=== PATIENT | female | born 1985 | race Two or more races ===

== ENCOUNTER 2025-06-22 15:14 | Inpatient (IN) | payer OTHER ==
[~2025-06-22] VITALS: Ht 165.1 cm; Wt 66.5 kg
--- NOTE | 2025-06-22 15:20 | ED.PDOC ---
HPI Comments 40 y.o F with PMHx of seizures, presents to the ED via EMS for chief complaint of left-sided chest pain localized right under her left breast that started three weeks ago. patient reports that pain is intermittent, presents on deep inspiration and has no alleviating factors. Patient took 81 mg of aspirin prior to EMS arrival however states that pain is still present. She denies any nausea, vomiting, abdominal pain, shortness a breath, fever, chills, recent illness. Time Seen by MD: 15:15 Reviewed Notes: Nurses Notes, Medications, Allergies Allergies: Coded Allergies: Morphine (Verified Allergy, Unknown, 06/22/25) Information Source: Patient, Emergency Med Personnel Mode of Arrival: EMS Severity: Moderate Timing: Weeks (3) Duration: Intermittent Prehospital treatment: 12 Lead EKG, [facility] Instructor Location: Chest (L) Quality: Sharp Onset: At Rest Cardiac Risk Factors: None PE Risk Factors: None History of: None Associated Signs and Symptoms: None Past Medical History PAST MEDICAL HISTORY: Seizures Surgical History: Denies all surgeries JUNIOR ACCOUNTANT History: No Pertinent JUNIOR ACCOUNTANT History Family History Family History: Reviewed,noncontributory to illness Social History Smoker: Non-Smoker Alcohol: Denies ETOH Use Drugs: Denies Drug Use Lives In: Home Constitutional: denies: chills, diaphoresis, fatigue, fever, malaise, sweats, weakness, others EENTM: denies: blurred vision, double vision, ear bleeding, ear discharge, ear drainage, ear pain, ear ringing, eye pain, eye redness, hearing loss, mouth pain, mouth swelling, nasal discharge, nose bleeding, nose congestion, nose pain, photophobia, tearing, throat pain, throat swelling, voice changes, others Respiratory: denies: cough, hemoptysis, orthopnea, SOB at rest, shortness of breath, SOB with excertion, stridor, wheezing, others Cardiovascular: reports: chest pain; denies: dizzy spells, diaphoresis, Dyspnea on exertion, edema, irregular heart beat, left arm pain, lightheadedness, palpitations, PND, syncope, others Gastrointestinal: denies: abdomen distended, abdominal pain, blood streaked bowels, constipated, diarrhea, dysphagia, difficulty swallowing, hematemesis, melena, nausea, poor appetite, poor fluid intake, rectal bleeding, rectal pain, vomiting, others Genitourinary: denies: abnormal vagina bleeding, burning, dyspareunia, dysuria, flank pain, frequency, hematuria, incontinence, pain, , vagina discharge, urgency, others Neurological: denies: dizziness, fainting, headache, left sided numbness, left sided weakness, numbness, paresthesia, pre-existing deficit, right sided numbness, right sided weakness, seizure, speech problems, tingling, tremors, weakness, others Musculoskeletal: denies: back pain, gout, joint pain, joint swelling, muscle pain, muscle stiffness, neck pain, others Integumetry: denies: bruises, change in color, change in hair/nails, dryness, laceration, lesions, lumps, rash, wounds, others Allergic/Immunocompromised: denies: Difficulty Healing, Frequent Infections, Hives, Itching, others Hematologic/Lymphatic: denies: anemia, blood clots, easy bleeding, easy bruising, swollen glands, others Endocrine: denies: excessive hunger, excessive sweating, excessive thirst, excessive urination, flushing, intolerance to cold, intolerance to heat, unexplained weight gain, unexplained weight loss, others Psychiatric: denies: anxiety, bipolar disorder, depression, hopeless, panic disorder, schizophrenia, sleepless, suicidal, others All Other Systems: Reviewed and Negative Physical Exam General Appearance: Moderate Distress HEENT: Normal ENT Inspection, Pharynx Normal, TMs Normal Neck: Full Range of Motion, Non-Tender, Normal, Normal Inspection Respiratory: Chest Non-Tender, Lungs Clear, No Accessory Muscle Use, No Respiratory Distress, Normal Breath Sounds Cardiovascular: No Edema, No JVD, No Murmur, No Gallop, Normal Peripheral Pulses, Regular Rate/Rhythm Breast Exam: Deferred Gastrointestinal: No Organomegaly, Non Tender, No Pulsatile Mass, Normal Bowel Sounds, Soft Genitalia: Deferred Pelvic: Deferred Rectal: Deferred Extremities: No calf tenderness, Normal capillary refill, Normal inspection, Normal range of motion, Non-tender, No pedal edema Musculoskeletal : Apperance: Normal Neurologic: Alert, office executive II-XII nml as Tested, No Motor Deficits, Normal Affect, Normal Mood, No Sensory Deficits Cerebellar Function: Normal Reflexes: Normal Skin: Dry, Normal Color, Warm Peripheral Pulses: 3+ Radial (R), 3+ Radial (L) Lymphatic: No Adenopathy Was a procedure done? Was a procedure done?: No CP Differential Dx Differential Diagnosis: A-fib, A-Flutter, Angina, Anxiety / Panic Attack, Atrial Dysrhythmia, Electrolyte Disorder, N/A Differential Diagnosis: Angina, Chest Wall Pain, Cholelithiasis, Costochondritis, Esophageal reflux/spasm, Myocardial Infarction, Pericarditis X-Ray, Labs, Meds, VS Vital Signs Date Time Temp Pulse Resp B/P (MAP) Pulse Ox O2 Delivery O2 Flow Rate FiO2 06/22/25 15:45 67 17 99 Room Air* 0 21 06/22/25 15:44 98.5 67 18 116/51 (72) 99 98.5 06/22/25 15:16 98.4 65 18 125/85 99 98.4 Lab Test 06/22/25 15:21 Range/Units White Blood Count 6.5 4.4-10.8 10^3/uL Red Blood Count 4.15 4.0-5.20 10^6/uL Hemoglobin 13.0 12.2-16.2 g/dL Hematocrit 37.7 36.0-46.0 % Mean Corpuscular Volume 91.0 80.0-100.0 fL Mean Corpuscular Hemoglobin 31.4 28.0-32.0 pg Mean Corpuscular Hemoglobin Concent 34.5 32.0-36.0 g/dL Red Cell Distribution Width 14.2 11.8-14.3 % Platelet Count 241 140-450 10^3/uL Mean Platelet Volume 8.1 6.9-10.8 fL Neutrophils (%) (Auto) 49.0 37.0-80.0 % Lymphocytes (%) (Auto) 42.3 10.0-50.0 % Monocytes (%) (Auto) 7.6 0.0-12.0 % Eosinophils (%) (Auto) 0.5 0.0-7.0 % Basophils (%) (Auto) 0.6 0.0-2.0 % Neutrophils # (Auto) 3.2 1.6-8.6 10 ^3/uL Lymphocytes # (Auto) 2.7 0.4-5.4 10 ^3/uL Monocytes # (Auto) 0.5 0-1.3 10 ^3/uL Eosinophils # (Auto) 0 0-0.8 10 ^3/uL Basophils # (Auto) 0 0-0.2 10 ^3/uL Nucleated Red Blood Cells 0.0 % Sodium Level Pending Potassium Level Pending Chloride Level Pending Carbon Dioxide Level Pending Anion Gap Pending Blood Urea Nitrogen Pending Creatinine Pending Glomerular Filtration Rate Calc Pending BUN/Creatinine Ratio Pending Serum Glucose Pending Calcium Level Pending Troponin I High Sensitivity Pending Patient alert. Came in because of chest pain. Vitals stable. Answering all questions. WBC within normal limits. Hemoglobin within normal limits. EKG reviewed does not show any acute changes. Continues to have chest pain. Was given aspirin. Was given nitro. Was given morphine. Was given Zofran. Explained to the patient. Continue monitoring. Time of 1ST Reevaluation: 15:18 Reevaluation 1ST: Unchanged Patient Education/Counseling: Diagnosis, Treatment, Prognosis Family Education/Counseling: No Family Present SEPSIS Sepsis Screen Physician Orders Chest Portable (06/22/25 15:21) Troponin-I Hs (06/22/25 15:21) Electrocardigram (06/22/25 15:21) Troponin-I Hs (06/22/25 16:21) Troponin-I Hs (06/22/25 18:21) Electrocardigram (06/22/25 16:21) Electrocardigram (06/22/25 18:21) Basic Metabolic Panel (06/22/25 15:21) Test, Urine (06/22/25 15:21) Urinalysis (06/22/25 15:21) Vital Signs Date Time Temp Pulse Resp B/P (MAP) Pulse Ox O2 Delivery O2 Flow Rate FiO2 06/22/25 15:45 67 17 99 Room Air* 0 21 06/22/25 15:44 98.5 67 18 116/51 (72) 99 98.5 06/22/25 15:16 98.4 65 18 125/85 99 98.4 Laboratory Tests Test 06/22/25 15:21 White Blood Count 6.5 10^3/uL (4.4-10.8) Departure 1 Departure Time of Disposition: 15:50 Impression: Primary Impression: Chest pain of unknown etiology Disposition: ADMITTED INPATIENT Admit to: Med Surg Condition: Guarded Critical Care Note Critical Care Time?: Yes (90 min-critical care time only) Stability Stability form required: No Heart Score Heart Score: Heart Score Response (Comments) Value History Slightly Suspicious 0 EKG Normal 0 Age <45 0 Risk Factors No known risk factors 0 Troponin Normal limit 0 Total 0 I personally scribed for CLAY SHETH MD ([email or web address]) on 06/22/25 at 15:20. Electronically submitted by Lilly Gomez ([facility]). CLAY SHETH MD Jun 22, 2025 15:20
[2025-06-22 15:44] LABS: Hematocrit 37.7 % (36.0-46.0); Hemoglobin 13.0 g/dL (12.2-16.2); Mean Corpuscular Hemoglobin 31.4 pg (28.0-32.0); Mean Corpuscular Volume 91.0 fL (80.0-100.0); Nucleated Red Blood Cells % 0.0 %
[2025-06-22 15:45] VITALS: PULSE 67; RESP 17; O2SAT 99
[2025-06-22 15:51] LABS: Potassium 4.3 mmol/L (3.5-5.1); Sodium 141 mmol/L (136-145)
[2025-06-22 15:52] LABS: Anion Gap 8 (5-15); Calcium 9.2 mg/dL (8.7-10.4); Carbon Dioxide 22 mmol/L (20-31)
[2025-06-22 15:57] LABS: BUN/Creatinine Ratio 14.1 (10.0-20.0); Blood Urea Nitrogen 13 mg/dL (9-23); Glucose 84 mg/dL (74-106)
[2025-06-22 15:58] LABS: Chloride 111 mmol/L (98-107)
[2025-06-22] MEDS: ONDANSETRON HCL 4 MG/2 ML VIAL IV ONE (16:11)
[2025-06-22] MEDS: MORPHINE SULFATE 4 MG/ML SYR/VIAL IV ONE (16:12)
[2025-06-22] MEDS: NITROGLYCERIN 0.4 MG SL TAB SL ONE (16:12)
--- NOTE | 2025-06-22 16:28 | DVH ---
CHEST RADIOGRAPH Indication: CHEST PAIN Technique: Single frontal view of the chest was obtained Comparison: None FINDINGS: Lines and Tubes: None Lungs: No focal consolidation. Pleura: No effusion. No pneumothorax. Cardiomediastinal contours: Unremarkable Bones: No acute osseous abnormality. IMPRESSION: No acute cardiopulmonary disease.
[2025-06-22 17:20] LABS: Urine Protein, UAD Negative (Negative)
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
[2025-06-22] MEDS ORDERED: ONDANSETRON HCL 4 MG/2 ML VIAL IV PRN (17:30)
[2025-06-22] MEDS ORDERED: MORPHINE SULFATE INJ 2 MG/ml SYRG IV PRN (17:30)
[2025-06-22] MEDS: KETOROLAC TROMETH 30 MG/ML 1ML VIAL IV ONE (17:35)
[2025-06-22] MEDS: LIDOCAINE 5% TOPICAL PATCH TOP ONE (17:35)
[2025-06-22 17:52] LABS: INR 1.08 (0.9-1.15); Partial Thromboplastin Time 30.5 SEC (24.5-34.5); Prothrombin Time 11.4 sec (9.3-11.8)
[2025-06-22 17:58] LABS: Magnesium 2.0 mg/dL (1.6-2.6); Triglycerides 74.0 mg/dL (< 150)
[2025-06-22 17:59] LABS: HDL Cholesterol 49.0 mg/dL (40-59)
[2025-06-22 18:00] LABS: Cholesterol 177.0 mg/dL (< 200)
[2025-06-22 18:15] LABS: Alanine Aminotransferase 14.0 U/L (7-40); Albumin 4.2 g/dL (3.2-4.8); Bilirubin, Direct 0.2 mg/dL (<0.3); Bilirubin, Total 0.6 mg/dL (0.2-1.0); Total Protein 6.6 g/dL (5.7-8.2)
[2025-06-22 18:17] LABS: Lipase 40.0 U/L (12-53)
[2025-06-22 18:19] LABS: Alkaline Phosphatase 45.0 U/L (46-116)
[2025-06-22 18:30] VITALS: BP 108/67; PULSE 63; RESP 16; TEMP 97.7; O2SAT 100
[2025-06-22] MEDS ORDERED: DIVA-92 PO (18:41)
[2025-06-22] MEDS ORDERED: LEVE500T40 PO (18:41)
--- NOTE | 2025-06-22 19:07 | ECG ---
[facility] Test Date: 2025-06-22 Test Time: 16:09:06 Pat Name: KELSEA RIVAS Department: ED Room: [facility] Gender: F Chaperone: HALEY : 1985 Requested By: CLAY SHETH Order Number: [id number] Reading MD: Rojelio Magdaleno Measurements Intervals [place] Rate: 60 P: 37 OH: 145 QRS: -27 QRSD: 85 T: 5 QT: 449 QTc: 449 Interpretive Statements Sinus rhythm Left atrial enlargement Left ventricular hypertrophy Electronically Signed On 06-27-2025 14:50:12 PST by Rojelio Magdaleno Please click the below link to view image of tracing.
--- NOTE | 2025-06-22 19:07 | ECG ---
[facility] Test Date: 2025-06-22 Test Time: 15:12:52 Pat Name: KELSEA RIVAS Department: ED Room: [facility]5T B Gender: F Magazine Grinder Loader: HALEY : 1985 Requested By: CLAY SHETH Order Number: [id number] Reading MD: Rojelio aMgdaleno Measurements Intervals [place] Rate: 66 P: 41 NC: 138 QRS: -18 QRSD: 85 T: 4 QT: 444 QTc: 466 Interpretive Statements Sinus arrhythmia Probable left atrial enlargement Borderline left axis deviation Minimal ST depression, inferior leads Electronically Signed On 06-27-2025 14:50:04 PST by Rojelio Magdaleno Please click the below link to view image of tracing.
[2025-06-22 20:00] VITALS: PULSE 67; RESP 18; O2SAT 96
[2025-06-22 21:00] VITALS: BP 107/64; PULSE 58; RESP 18; TEMP 98.2; O2SAT 100
[2025-06-22] MEDS: ACETAMINOPHEN 325 MG TAB PO PRN (21:03)
[2025-06-22] MEDS: ATORVASTATIN 20 MG TAB PO SCH (21:04)
[2025-06-22 21:05] LABS: Amphetamine Screen, Urine Neg (NEGATIVE); Barbiturate Scree,Urine Neg (NEGATIVE); Benzodiazephine Screen, Urine Neg (NEGATIVE); Cannabinoid Screen, Urine Pos (NEGATIVE); Cocaine Screen, Urine Neg (NEGATIVE); Opiate Scree,Urine Neg (NEGATIVE); Phencyclidine Screen, Urine Neg (NEGATIVE)
[2025-06-22] MEDS: levETIRAcetam 500 MG TAB PO ONE (22:47)
[2025-06-23] VITALS (8 sets, daily range): BP systolic 98–130; BP diastolic 33–73; PULSE 63–71; RESP 15–18; TEMP 98.3–99.1; O2SAT 97–100
[2025-06-23] MEDS: SODIUM PHOSPHATES 20 MEQ in SODIUM CHL 0.9% 100 ML IV ONE (01:15)
[2025-06-23] MEDS ORDERED: LORazepam 2MG/ML-1ML VIAL IV PRN (02:00)
--- NOTE | 2025-06-23 04:14 | DVH ---
EXAM: US THYROID HISTORY: Thyroid nodules on palpation COMPARISON: None TECHNIQUE: Ultrasound examination of the thyroid was performed. FINDINGS: The right lobe of the thyroid measures 5.1 x 1.4 x 1.9 cm. The left lobe of the thyroid measures 4.7 x 1.5 x 1.6 cm. The thyroid isthmus measures 2.8 mm AP. The thyroid parenchyma is homogeneous bilaterally without solid nodules or cystic lesions. No suspicious calcifications or abnormal color Doppler blood flow. IMPRESSION: Normal sonographic appearance of the thyroid.
[2025-06-23 06:35] LABS: Hematocrit 37.4 % (36.0-46.0); Hemoglobin 13.0 g/dL (12.2-16.2); Mean Corpuscular Hemoglobin 31.5 pg (28.0-32.0); Mean Corpuscular Volume 90.7 fL (80.0-100.0)
[2025-06-23 06:53] LABS: Alanine Aminotransferase 12 U/L (7-40); Albumin 3.9 g/dL (3.2-4.8); Anion Gap 8 (5-15); BUN/Creatinine Ratio 11.3 (10.0-20.0); Blood Urea Nitrogen 9 mg/dL (9-23); Calcium 9.0 mg/dL (8.7-10.4); Carbon Dioxide 22 mmol/L (20-31); Glucose 93 mg/dL (74-106); Potassium 4.2 mmol/L (3.5-5.1); Sodium 142 mmol/L (136-145); Total Protein 6.3 g/dL (5.7-8.2)
[2025-06-23 06:54] LABS: Alkaline Phosphatase 42 U/L (46-116); Bilirubin, Total 0.8 mg/dL (0.2-1.0); Chloride 112 mmol/L (98-107)
[2025-06-23 07:55] LABS: Total Cells Counted 100.0 (100)
[2025-06-23 07:56] LABS: RBC Morphology Normal
[2025-06-23] MEDS: ASPirin-EC 81 mg tab PO SCH (10:46)
[2025-06-23] MEDS: ENOXAPARIN SOD 40 MG/0.4 ML SYRINGE SC SCH (10:47)
--- NOTE | 2025-06-23 13:55 | DVHSR ---
APPROVED REPORT EXAM: Two-dimensional and M-mode echocardiogram with Doppler and color Doppler. Blood Pressure: 130/73 mmHg INDICATION Chest Pain RISK FACTORS Height: 5' 5", Weight: 145 DIMENSIONS LVDd 4.6 (3.8-5.7cm) LA (2D) 3.2 (1.9-4.0cm) Aortic Root 2.8 (2.0-3.7cm) LVDs 3.9 (2.5-4.0cm) LA (MM) (1.9-4.0cm) Aortic Cusp Exc 1.7 (1.5-2.0cm) EF (%) 35.0 (55-70%) Rt. Atrium 2.9 (1.9-4.0cm) Asc. Aorta cm IVSd 0.8 (0.7-1.1cm) RV (D) (1.8-2.4cm) PWd 0.7 (0.7-1.1cm) Mitral Valve Mitral Mitral Stenosis E wave 1.00m/s MV Mean GR. mmHg A wave 0.60m/s MV Peak GR. mmHg E/A ratio 1.7 2D MVA cm2 Aortic Valve Aortic Valve Aortic Stenosis V1 0.70m/s AO Mean GR. 3mmHg V2 1.20m/s AO Peak GR. 7mmHg LVOT Diameter 2.0 (1.8-2.4cm) Doppler RAVEN 1.83cm2 Pulmonic Valve V2 0.60m/s Conclusion lvef 35% dilated LV normal rv function mild mitral regurg
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
--- NOTE | 2025-06-23 16:10 | DVHINCON2 ---
JONATHAN MUSE [facility] 06/23/25 1610: Date Seen: Jun 23, 2025 Referring Physician MD Nina Reason for Consultation Chest pain History of Present Illness This is a 40-year-old female patient who presents to the emergency room with chief complaint of chest pain. She reports that she has been experiencing intermittent chest pain for the last three weeks. She describes the pain as unprovoked, intermittent, sharp and sometimes pressure-like in nature, located at the left inframammary area without any radiation. Associated symptoms in clude shortness of breath. Initial twelve lead electrocardiogram reveals normal sinus rhythm with junctional beats and nonspecific T-wave inversion to inferior leads. Serial troponin levels have been negative. Significant past medical history includes peripartum cardiomyopathy (2016), preeclampsia, anemia, seizure disorder, and tobacco use. The patient is a very poor historian and does not have any of her medical records. She mentions having a "cardiomyopathy" during her last in 2016 with her twins. She reports being hospitalized for over a month requiring a "heart monitor". She denies any previous cardiac workup such as stress test or coronary angiogram in the past. She also mentions a significant familial cardiac history including her mother who has congestive heart failure with coronary artery disease and her father who recently underwent a double-vessel CABG. She states that she has never followed up with a electrical contacts adjuster in the outpatient setting. Past Medical History Past medical history reviewed. No other significant than mentioned above. Past Surgical History in 2016 Ovarian cyst status post cystectomy Right shoulder surgery Family History: FH: CABG (coronary artery bypass surgery) G8 FATHER PTCA G8 MOTHER Family History Family history reviewed. Social History Patient smokes approximately three cigarettes per day for the last year Denies illicit drug use Denies any alcohol use Allergies: Coded Allergies: Morphine (Verified Allergy, Unknown, 06/22/25) Home Meds Reported Medications Divalproex Sodium (Depakote Er) 250 Mg Tab, 4 TAB PO QPM, #30 TAB 2 Refills 06/22/25 Levetiracetam (Keppra) 500 Mg Tab, 1000 MG PO HS for 30 Days, MG 06/22/25 Home Meds Home medications reviewed. Current Medications Current Medications Medications (Trade) Dose Ordered Sig/Chris Route PRN Reason Start Time Stop Time Status Last Admin Acetaminophen (Tylenol Tablet) 325 mg Q4HP PRN PO MILD PAIN (1-3 PAIN SCALE) 06/22/25 17:30 06/23/25 00:54 Ondansetron HCl (Zofran) 4 mg Q4HP PRN IV NAUSEA / VOMITING 06/22/25 17:30 Morphine Sulfate 2 mg Q4HPRN PRN IV SEVERE PAIN (7-10 PAIN SCALE) 06/22/25 17:30 06/23/25 01:05 DC Enoxaparin Sodium (Lovenox) 40 mg DAILY SC 06/23/25 10:00 06/23/25 10:47 Aspirin (Ecotrin Enteric Coated Tablet) 81 mg DAILY PO 06/23/25 10:00 06/23/25 10:46 Atorvastatin Calcium (Lipitor) 20 mg HS PO 06/22/25 22:00 06/22/25 21:04 Lidocaine (Lidoderm 5% Topical Patch) 1 patch DAILY@1800 TOP 06/23/25 18:00 Levetiracetam (Keppra Tablet) 1,000 mg HS PO 06/23/25 22:00 Divalproex Sodium (Depakote "Dr" Tablet) 1,000 mg QPM PO 06/23/25 18:00 Ergocalciferol (Vitamin D 50,000 Unit) 50,000 unit Q7D PO 06/23/25 01:30 Lorazepam (Ativan Inj) 1 mg Q5MINP PRN IV SEIZURES 06/23/25 02:00 Review of Systems Constitutional: No symptom reported Ears, Nose, & Throat: No symptom reported Eyes: No symptom reported Neurological: No symptoms reported Pulmonary/Respiratory: Shortness of breath Cardiovascular: Chest pain Gastrointestinal: No symptom reported Genitourinary: No symptom reported Musculoskeletal: No symptom reported Skin: No symptom reported Psychiatric: No symptom reported Endocrine: No symptom reported Hematologic/Lymphatic: No symptom reported Vital Signs Vital Signs Date Time Temp Pulse Resp B/P (MAP) Pulse Ox O2 Delivery O2 Flow Rate FiO2 06/23/25 13:23 99.1 64 15 111/68 (82) 99 99.1 06/23/25 08:00 Room Air* 0 21 Physical Exam General Appearance: Cooperative.Thin Pulmonary/Respiratory: Clear, bilateral breaths sounds. Cardiovascular/Chest: Regular rate and rhythm. Peripheral Pulses: 2+ Radial (R). 2+ Radial (L). 2+ Pedal (R). 2+ Pedal (L) Abdominal Exam: Normal bowel sounds. Ankle Exam: Negative ankle edema Lower extremities: Negative lower extremity edema Neuro/Mental Status: A/OX4, coherent. Thoughts/Psych: Normal thought pattern. Appropriate mood and affect. Good judgment and insight. Appearance: No acute distress. Skin Exam: Normal inspection. Normal color. Warm and dry. Labs/Diagnostic Data Labs Test 06/23/25 05:50 06/22/25 17:58 06/22/25 16:48 06/22/25 16:16 Range/Units White Blood Count 6.1 4.4-10.8 10^3/uL Red Blood Count 4.12 4.0-5.20 10^6/uL Hemoglobin 13.0 12.2-16.2 g/dL Hematocrit 37.4 36.0-46.0 % Mean Corpuscular Volume 90.7 80.0-100.0 fL Mean Corpuscular Hemoglobin 31.5 28.0-32.0 pg Mean Corpuscular Hemoglobin Concent 34.7 32.0-36.0 g/dL Red Cell Distribution Width 13.8 11.8-14.3 % Platelet Count 242 140-450 10^3/uL Mean Platelet Volume 8.0 6.9-10.8 fL Neutrophils (%) (Auto) 37.0-80.0 % Lymphocytes (%) (Auto) 10.0-50.0 % Monocytes (%) (Auto) 0.0-12.0 % Basophils (%) (Auto) 0.0-2.0 % Neutrophils # (Auto) 1.6-8.6 10 ^3/uL Lymphocytes # (Auto) 0.4-5.4 10 ^3/uL Monocytes # (Auto) 0-1.3 10 ^3/uL Differential Total Cells Counted 100.0 100 Neutrophils % (Manual) 31 L 37.0-80.0 Band Neutrophils % (Manual) 1 Lymphocytes % (Manual) 60 H 10.0-50.0 Monocytes % (Manual) 8 0-12 Eosinophils % (Manual) 0 0-7 Basophils % (Manual) 0 0.0-2.0 Metamyelocytes % (manual) 0 Myelocytes % (Manual) 0 Promyelocytes % (Manual) 0 Blast Cells % (Manual) 0 Reactive Lymphocytes 0 Platelet Estimate Adequate Red Blood Cell Morphology Normal Sodium Level 142 136-145 mmol/L Potassium Level 4.2 3.5-5.1 mmol/L Chloride Level 112 H 98-107 mmol/L Carbon Dioxide Level 22 20-31 mmol/L Anion Gap 8 5-15 Blood Urea Nitrogen 9 9-23 mg/dL Creatinine 0.80 0.550-1.02 mg/dL Glomerular Filtration Rate Calc 95 >90 mL/min BUN/Creatinine Ratio 11.3 10.0-20.0 Serum Glucose 93 74-106 mg/dL Calcium Level 9.0 8.7-10.4 mg/dL Total Bilirubin 0.8 0.2-1.0 mg/dL Aspartate Amino Transferase (AST) 11 L 13-40 U/L Alanine Aminotransferase (ALT) 12 7-40 U/L Alkaline Phosphatase 42 L 46-116 U/L Total Protein 6.3 5.7-8.2 g/dL Albumin 3.9 3.2-4.8 g/dL Thyroid Stimulating Hormone (TSH) 0.95 0.55-4.78 uIU/mL Lactic Acid Level 0.7 0.4-2.0 mmol/L Troponin I High Sensitivity < 3 L </=34 ng/L Urine Color Light-yellow Yellow Urine Clarity Clear Clear Urine pH 7.0 5.0-9.0 Urine Specific [place] 1.015 1.001-1.035 Urine Protein Negative Negative Urine Ketones Negative Negative Urine Blood Negative Negative /uL Urine Nitrite Negative Negative Urine Bilirubin Negative Negative Urine Urobilinogen 2 H Negative mg/dL Urine Leukocyte Esterase Negative Negative /uL Urine RBC 1 0 - 4 /hpf Urine Microscopic WBC < 1 0-5 /HPF Urine Squamous Epithelial Cells Few <5 /hpf Urine Bacteria None seen None Seen /hpf Urine Glucose Normal Normal mg/dL Urine Test Negative Negative Urine Opiates Screen Neg NEGATIVE Urine Fentanyl Screen Neg NEGATIVE Urine Barbiturates Screen Neg NEGATIVE Urine Phencyclidine Screen Neg NEGATIVE Urine Amphetamines Screen Neg NEGATIVE Urine Benzodiazepines Screen Neg NEGATIVE Urine Cocaine Screen Neg NEGATIVE Urine Cannabinoids Screen Pos NEGATIVE Vitamin B12 Level 384 211-911 pg/mL Vitamin D 25-Hydroxy 16.3 L 30.0-100 ng/mL Test 06/22/25 15:38 06/22/25 15:21 Range/Units POC Glucose 96 70-106 mg/dl Eosinophils (%) (Auto) 0.5 0.0-7.0 % Eosinophils # (Auto) 0 0-0.8 10 ^3/uL Basophils # (Auto) 0 0-0.2 10 ^3/uL Nucleated Red Blood Cells 0.0 % Prothrombin Time 11.4 9.3-11.8 sec Prothrombin Time INR 1.08 0.9-1.15 Activated Partial Thromboplast Time 30.5 24.5-34.5 SEC D-Dimer, Quantitative < 0.19 0.0-0.49 mg/L FEU Hemoglobin A1c 5.6 <5.7 % A1C Phosphorus Level 2.0 L 2.4-5.1 mg/dL Magnesium Level 2.0 1.6-2.6 mg/dL Direct Bilirubin 0.2 <0.3 mg/dL Triglycerides Level 74 < 150 mg/dL Cholesterol Level 177 < 200 mg/dL LDL Cholesterol 119 H < 100 mg/dL HDL Cholesterol 49 40-59 mg/dL Lipase 40 12-53 U/L Assessment Chest pain, rule out coronary ischemia De Miki HFrEF, NYHA class II ?Peripartum cardiomyopathy History preeclampsia Seizure disorder Tobacco use Significant familial cardiac history Plan/Recommendation We will continue with the following plan/recommendations (Dr. Ash): Case discussed and reviewed with . A transthoracic echocardiogram reveals an EF of 35%. Initiate guideline directed medical therapy for CHF as tolerated by blood pressure. Initiate low-dose beta-álvaro, monitor for bradycardia/junctional rhythm.. The patient denies any previous cardiac workup in the past. Given patient's clinical presentation, reduced ejection fraction, twelve lead electrocardiogram, and significant familial cardiac history, the patient was offered ischemic workup with a nuclear stress test. Discussed with the patient and her mother who was at bedside. Patient is agreeable to undergo stress test. In the setting of negative test, the patient will be sc heduled for a nuclear stress test on 06/26/2025. In the meantime, continue with single antiplatelet therapy and lipid-lowering agent. Continue with close cardiac surveillance. Thank you for allowing us to care for this patient. Please call with any questions or concerns. Critical care time spent: 44 minutes This medical document was created using an electronic medical record system with voice recognition software and computerized dictation system. Although this document has been carefully reviewed, there might still be some phonetic and typographical errors. Occasional wrong-word or ``sound-alike substitutions may have occurred due to the inherent limitations of voice recognition software. These areas are purely typographical due to imperfections of the software programs and do not reflect any compromise in the patient's medical care. Please read the chart carefully and recognize, using context, where these substitutions have occurred. Plan discussed with: Patient, Other (Patient's mother at bedside) NYHA Physical activity limitations: Class2(Slight)fatigue,sob (palpitatns, angina w activityv) Date of Service: Jun 23, 2025 Billing Provider: JONATHAN MUSE Cardiology Common Codes: [id number] INP/OBS CARE (High) Cardiology Consultation Codes: [id number] CONSULT <45MIN KUNAL ASH MD 06/25/25 0905: Family History: FH: CABG (coronary artery bypass surgery) G8 FATHER PTCA G8 MOTHER Allergies: Coded Allergies: Morphine (Verified Allergy, Unknown, 06/22/25) Home Meds Reported Medications Divalproex Sodium (Depakote Er) 250 Mg Tab, 4 TAB PO QPM, #30 TAB 2 Refills 06/22/25 Levetiracetam (Keppra) 500 Mg Tab, 1000 MG PO HS for 30 Days, MG 06/22/25 Plan/Recommendation agree with DIRECTOR QUALITY ASSURANCE assessment and plan pt ?peripartum CM for 6 years but never even saw specialist after start GDMT consider lexiscan and lifevest if feasible Plan discussed with: Patient JONATHAN MUSE Jun 23, 2025 16:10 KUNAL ASH MD Jun 25, 2025 09:05
[2025-06-23] MEDS: LIDOCAINE 5% TOPICAL PATCH TOP SCH (17:56)
[2025-06-23] MEDS: levETIRAcetam 500 MG TAB PO SCH (21:09)
[2025-06-23] MEDS: SACUBITRIL-VALSARTAN 24mg/26mg TAB PO SCH (21:10)
[2025-06-24] VITALS (8 sets, daily range): BP systolic 91–117; BP diastolic 50–71; PULSE 56–89; RESP 16–18; TEMP 96.7–98.2; O2SAT 95–98
[2025-06-24] MEDS: EMPAGLIFLOZIN 10 MG TAB PO SCH (09:23)
[2025-06-24] MEDS: SACUBITRIL-VALSARTAN 24mg/26mg TAB PO SCH (09:23)
[2025-06-24] MEDS: SPIRONOLACTONE 25 MG TAB PO SCH (09:25)
[2025-06-24] MEDS: METOPROLOL SUCCINATE XL 50 MG TAB PO SCH (09:25)
[2025-06-24] MEDS: ERGOCALCIFEROL 50,000 UNIT(1.25MG) CAP PO SCH (09:33)
--- NOTE | 2025-06-24 10:14 | DVHPN2 ---
Progress Note Date Seen: Jun 24, 2025 Medical Necessity Reason Pt with a Central, PICC or Fol: No Subjective Patient reports: Feels better Other Systems: pt with mom now Objective vital signs Vital Sign Date Time Temp Pulse Resp B/P (MAP) Pulse Ox O2 Delivery O2 Flow Rate FiO2 06/24/25 09:25 64 94/47 06/24/25 05:00 97.8 17 96 97.8 06/23/25 20:30 Room Air* 0 21 Total Intake and Output 06/23/25 06/23/25 06/24/25 15:00 23:00 07:00 Intake Total 700 ml 350 ml Balance 700 ml 350 ml medications Current Medications Medications Dose Ordered Sig/Chris Route Start Time Stop Time Status Last Admin Dose Admin Acetaminophen 325 mg Q4HP PRN PO 06/22/25 17:30 06/23/25 00:54 325 MG Ondansetron HCl 4 mg Q4HP PRN IV 06/22/25 17:30 Enoxaparin Sodium 40 mg DAILY SC 06/23/25 10:00 06/24/25 09:22 40 MG Aspirin 81 mg DAILY PO 06/23/25 10:00 06/24/25 09:23 81 MG Atorvastatin Calcium 20 mg HS PO 06/22/25 22:00 06/23/25 21:10 20 MG Lidocaine 1 patch DAILY@1800 TOP 06/23/25 18:00 06/23/25 17:56 1 PATCH Levetiracetam 1,000 mg HS PO 06/23/25 22:00 06/23/25 21:09 1,000 MG Divalproex Sodium 1,000 mg QPM PO 06/23/25 18:00 06/23/25 17:55 1,000 MG Ergocalciferol 50,000 unit Q7D PO 06/23/25 01:30 06/24/25 09:33 50,000 UNIT Lorazepam 1 mg Q5MINP PRN IV 06/23/25 02:00 Empaglifozin 10 mg DAILY PO 06/24/25 10:00 06/24/25 09:23 10 MG Spironolactone 25 mg DAILY PO 06/24/25 10:00 Metoprolol Succinate 25 mg DAILY PO 06/24/25 10:00 Sacubitril/ Valsartan 0.5 tab BID PO 06/24/25 08:30 06/24/25 09:23 0.5 TAB Examination: GENERAL:Normal, GENERAL:Abnormal, HEENT:Abnormal, LUNGS:Abnormal, CVS:Abnormal, ABDOMEN:Abnormal laboratory and microbiology Laboratory Tests 06/23/25 05:50 Test 06/23/25 05:50 Range/Units Serum Glucose 93 74-106 mg/dL Problem List/Assessment/Plan Problem List/Assessment/Plan Chest pain, rule out coronary ischemia De Miki HFrEF, NYHA class II ?Peripartum cardiomyopathy History preeclampsia Seizure disorder Tobacco use Significant familial cardiac history lexiscan stress today cont GDMT recommend lifevest fu with MD in [place], [facility] aware of importance strong genetic FH of CHF Plan discussed with: Patient Date of Service: Jun 24, 2025 Billing Provider: KUNAL ASH MD Common Visit Codes: NOT BILLABLE KUNAL ASH MD Jun 24, 2025 10:14
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
[2025-06-25] VITALS (8 sets, daily range): BP systolic 90–117; BP diastolic 54–77; PULSE 69–100; RESP 16–20; TEMP 97.1–98.3; O2SAT 96–99
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
[2025-06-26] VITALS (7 sets, daily range): BP systolic 88–109; BP diastolic 45–73; PULSE 73–87; RESP 16–18; TEMP 96.4–98.4; O2SAT 96–99
[2025-06-26] MEDS: REGADENOSON 0.4 MG/5 ML SYRG IV ONE ×2 (07:53)
--- NOTE | 2025-06-26 11:53 | DVHSR ---
APPROVED REPORT Exam: Nuclear Stress Test BMI: 0 Stress Test Details HR Max Heart Rate (APMHR): 179.175449 bpm Target HR (85% APMHR): 152.528136 bpm BP ECG Stress ECG Conclusion lvef 45% no ischemia echo is more reliable for lvef normal perfusion NICM NM EXAM: Myocardial Perfusion REST/STRESS Imaging Protocol: Rest Tc-99m/Stress Tc-99m 2 days Resting Data Rest SPECT myocardial perfusion imaging was performed in supine position 60 minutes following the intravenous injection of 15.4 mCi of Tc-99m Sestamibi. Time of rest injection: 09:50 Date: 06/24/2025 Time of rest imagin:50 Date: 06/24/2025 Administration Route: IV Administration Site: Right Arm Pharmacologic Stress Pharmacologic stress test was performed by injecting Regadenoson 0.4 mg IV push followed by the intravenous injection of 20.0 mCi of Tc-99m Sestamibi. Time of stress injection: 07:20 Date: 06/26/2025 Time of stress imagin:20 Date: 06/26/2025 Administration Route: IV Administration Site: Right Arm Gated Stress SPECT was performed 60 minutes after stress injection. The images were gated to evaluate regional wall motion and calculate left ventricular ejection fraction. Stress only was performed in the Supine position. Nuclear Conclusion Nuclear Findings: negative for ischemia lvef 45% no ischemia echo is more reliable for lvef normal perfusion NICM
--- NOTE | 2025-06-26 12:01 | DVHPN2 ---
Progress Note Date Seen: Jun 26, 2025 Medical Necessity Reason Pt with a Central, PICC or Fol: No Subjective Patient reports: Feels better Objective vital signs Vital Sign Date Time Temp Pulse Resp B/P (MAP) Pulse Ox O2 Delivery O2 Flow Rate FiO2 06/26/25 10:00 75 90/45 06/26/25 08:39 96.4 18 96 96.4 06/25/25 20:00 Room Air* 0 21 Total Intake and Output 06/25/25 06/25/25 06/26/25 15:00 23:00 07:00 Intake Total 1490 ml 940 ml Balance 1490 ml 940 ml medications Current Medications Medications Dose Ordered Sig/Chris Route Start Time Stop Time Status Last Admin Dose Admin Acetaminophen 325 mg Q4HP PRN PO 06/22/25 17:30 06/23/25 00:54 325 MG Ondansetron HCl 4 mg Q4HP PRN IV 06/22/25 17:30 Enoxaparin Sodium 40 mg DAILY SC 06/23/25 10:00 06/26/25 10:46 40 MG Aspirin 81 mg DAILY PO 06/23/25 10:00 06/26/25 10:46 81 MG Atorvastatin Calcium 20 mg HS PO 06/22/25 22:00 06/25/25 21:35 20 MG Lidocaine 1 patch DAILY@1800 TOP 06/23/25 18:00 06/25/25 17:11 1 PATCH Levetiracetam 1,000 mg HS PO 06/23/25 22:00 06/25/25 21:35 1,000 MG Divalproex Sodium 1,000 mg QPM PO 06/23/25 18:00 06/25/25 17:11 1,000 MG Ergocalciferol 50,000 unit Q7D PO 06/23/25 01:30 06/24/25 09:33 50,000 UNIT Lorazepam 1 mg Q5MINP PRN IV 06/23/25 02:00 Empaglifozin 10 mg DAILY PO 06/24/25 10:00 06/26/25 10:46 10 MG Spironolactone 25 mg DAILY PO 06/24/25 10:00 06/25/25 09:27 25 MG Metoprolol Succinate 25 mg DAILY PO 06/24/25 10:00 06/25/25 09:28 25 MG Sacubitril/ Valsartan 0.5 tab BID PO 06/24/25 08:30 06/25/25 21:36 0.5 TAB Examination: GENERAL:Abnormal, HEENT:Abnormal, LUNGS:Abnormal, CVS:Abnormal, ABDOMEN:Abnormal laboratory and microbiology Laboratory Tests 06/23/25 05:50 Test 06/23/25 05:50 Range/Units Serum Glucose 93 74-106 mg/dL Problem List/Assessment/Plan Problem List/Assessment/Plan Chest pain, rule out coronary ischemia [place] HFrEF, NYHA class II ?Peripartum cardiomyopathy History preeclampsia Seizure disorder Tobacco use Significant familial cardiac history lexiscan stress today cont GDMT recommend lifevest fu with MD in [place], family aware of importance strong genetic FH of CHF NICM negative nuc dc home with lifevest and gdmt pt will need to fu with [facility] in 1 week has la care Plan discussed with: Patient Date of Service: Jun 26, 2025 Billing Provider: KUNAL ASH MD Common Visit Codes: NOT BILLABLE KUNAL ASH MD Jun 26, 2025 12:01
[2025-06-26] MEDS ORDERED: ATOR20TA50 PO (16:00)
[2025-06-26] MEDS ORDERED: SPIR25TA PO (16:00)
[2025-06-26] MEDS ORDERED: ASPI-543 PO (16:00)
[2025-06-26] MEDS ORDERED: SACU1TAB PO (16:00)
[2025-06-26] MEDS ORDERED: EMPA1TAB PO (16:00)
[2025-06-26] MEDS ORDERED: METO-6 PO (16:00)
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
--- NOTE | 2025-06-27 07:49 | ECG ---
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
--- NOTE | 2025-06-27 07:50 | ECG ---
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
== END 2025-06-26 19:05 | disposition home or self-care (01) | DRG 203 ==
LOC: ER 15:14 → EDBD 15:14 → OVERFLOW 17:22 → TELE-WESTW 18:11
PROVIDERS: ADMIT Student in an Organized Health Care Education/Training Program; ATTEND Internal Medicine
DX: M94.0 Chondrocostal junction syndrome [Tietze] (principal); I50.21 Acute systolic (congestive) heart failure; G40.909 Epilepsy, unspecified, not intractable, without status epilepticus; E83.39 Other disorders of phosphorus metabolism; F17.210 Nicotine dependence, cigarettes, uncomplicated; R73.03 Prediabetes; Z82.49 Family history of ischemic heart disease and other diseases of the circulatory system; Z88.5 Allergy status to narcotic agent
CPT/HCPCS: 36415; 71045; 76536; 78452; 80048; 80053; 80061; 80076; 80307; 81001; 81025; 82306; 82607; 82962; 83036; 83605; 83690; 83735; 84100; 84443; 84484; 84702; 85007; 85025; 85027; 85379; 85610; 85730; 93005; 93017; 93306; 96374; 96375; 99291; 99292; G0378; J1885; J2405